=== PATIENT | male | born 1990 | race American Indian/Alaskan Native ===

== ENCOUNTER 2017-02-20 06:19 | Emergency (ER) | payer SELFPAY ==
--- NOTE | 2017-02-20 06:48 | Emergency Department Report ---
HPI - General Chief Complaint: Extremity Problem,Nontraumatic Time Seen by Provider: 02/20/17 06:34 - HPI HPI: This is a 26-year-old -[place] male who presents to the emergency department from home with complaint of right shoulder pain and probable dislocation. The patient has a history of 6 previous right shoulder dislocations but has never seen an orthopedist for evaluation as he does not have any insurance. This will be the first time that the patient dislocated it in his sleep, which is what he believes happened. He is right-hand dominant. He denies any other past medical history. He has not taken anything for symptoms prior presentation. ED Past Medical Hx - Past Medical History Previous Medical History?: No - Surgical History Past Surgical History?: No - Social History Smoking Status: Current Every Day Smoker Substance Use Type: None - Medications Home Medications: Home Medications Medication Instructions Recorded Confirmed Last Taken Type Ibuprofen [Motrin 800 MG tab] 800 mg PO Q8HR PRN #20 tablet 02/20/17 Unknown Rx ED Review of Systems ROS: Stated complaint: DISLOCATED RT SHOULDER Other details as noted in HPI Comment: All other systems reviewed and negative Constitutional: denies: chills, fever Eyes: denies: eye pain, eye discharge, vision change ENT: denies: ear pain, throat pain Respiratory: denies: cough, shortness of breath, wheezing Cardiovascular: denies: chest pain, palpitations Gastrointestinal: denies: abdominal pain, nausea, diarrhea Musculoskeletal: arthralgia. denies: back pain Skin: denies: rash, lesions Neurological: denies: headache, weakness, paresthesias Physical Exam - Physical Exam Vital Signs: Vital Signs 02/20/17 02/20/17 06:21 06:40 Temperature 98.3 F Pulse Rate 78 Respiratory 20 14 Rate Blood Pressure 134/88 O2 Sat by Pulse 96 Oximetry Physical Exam: GENERAL: The patient is well-developed well-nourished. HEENT: Normocephalic. Atraumatic. Extraocular motions are intact. Patient has moist mucous membranes. Pupils equal reactive to light bilaterally. NECK: Supple. Trachea is midline. CHEST/LUNGS: Clear to auscultation. There is no respiratory distress noted. HEART/CARDIOVASCULAR: Regular. There is no tachycardia. There is no gallop rub or murmur. ABDOMEN: Abdomen is soft, nontender. Patient has normal bowel sounds. There is no abdominal distention. SKIN: Skin is warm and dry. NEURO: The patient is awake, alert, and oriented. The patient is cooperative. The patient has no focal neurologic deficits. The patient has normal speech. MUSCULOSKELETAL: There is some tenderness palpation to the circumferential right shoulder which is hanging low below the shoulder joint and held against his body and internal rotation. There is decreased range of motion to the right upper extremity at the shoulder secondary to pain and probable dislocation. Radial pulse +2 over 4 bilaterally. Cap refill less than 2 seconds. ED Course Vital Signs 02/20/17 02/20/17 06:21 06:40 Temperature 98.3 F Pulse Rate 78 Respiratory 20 14 Rate Blood Pressure 134/88 O2 Sat by Pulse 96 Oximetry - Moderate Sedation Indications: fracture/dislocation redu ASA Class: I Mallampati Airway Score: 1 Preparation: court recording monitor applied, pulse oximeter, capnometry used, supplemental O2 applied, suction/airway equipment at bedside, IV secured Ketamine: IV Ketamine Dose: 40 IV Propofol Dose (mgs): 60 Complications: none Patient Tolerated Procedure: well - Orthopedic Joint Reduction Joint #1 Consent Obtained: written consent Time Out Performed: Yes Side: right Joint Reduction Location: shoulder Analgesia: moderate sedation Shoulder Technique Used (if applicable): external rotation Technique Used: traction/counter-traction Post-Reduction Neuro Exam: intact Post-Reduction Vascular Exam: intact Post Reduction X-Ray Obtained: Yes Post Reduction X-Ray Results: reduced Splint Applied: Yes Patient Tolerated Procedure: well ED Medical Decision Making - Radiology Data Radiology results: image reviewed interpreted by me: Preliminary right shoulder x-ray shows a inferior anterior shoulder dislocation. Post reduction x-ray of the right shoulder shows appropriate reduction of the shoulder into the glenohumeral joint. - Medical Decision Making 26 year old male presents with his seventh right shoulder dislocation that occurred while sleeping. X-ray confirms anterior inferior shoulder dislocation. Patient was given moderate sedation and external rotation and traction was used and there was appropriate reduction of the shoulder joint. The reduction was confirmed with a post reduction x-ray of the right shoulder. Patient was monitored and is now awake, alert and does not appear to be under the effects of sedation. Patient was neurovascularly intact prior to the reduction and is neurovascularly intact now prior to discharge. He will be given a referral for an orthopedist and has been placed in a shoulder immobilizer. - Differential Diagnosis shoulder fracture, dislocation, subluxation, rotator cuff injury Critical Care Time: No Critical care attestation.: If time is entered above; I have spent that time in minutes in the direct care of this critically ill patient, excluding procedure time. ED Disposition Clinical Impression: Dislocation of right shoulder joint Qualifiers: Encounter type: initial encounter Qualified Code(s): S43.004A - Unspecified dislocation of right shoulder joint, initial encounter Disposition: DISCHARGED TO HOME OR SELFCARE Is pt being admited?: No Condition: Stable Instructions: Shoulder Dislocation (ED) Additional Instructions: Please follow-up with a orthopedist in the next week. Return to the emergency department with any worsening of your symptoms or any acute distress. Prescriptions: Ibuprofen [Motrin 800 MG tab] 800 mg PO Q8HR PRN #20 tablet PRN Reason: Pain Referrals: PRIMARY CAREMD [Primary Care Provider] - 3-5 Days SUE MARKS MD [Staff Physician] - 3-5 Days [facility] [Outside] - 3-5 Days [facility] [Outside] - 3-5 Days Time of Disposition: 08:56
[2017-02-20] MEDS ORDERED: DIPRIVAN 10 MG/ML IV ONE (06:59)
[2017-02-20] MEDS ORDERED: KETALAR IV ONE (06:59)
[2017-02-20] MEDS ORDERED: NACL 0.9% 1000 ML 1,000 ML ONE (07:59)
[2017-02-20] MEDS ORDERED: NACL 0.9% 1000 ML 1,000 ML IV ONE (08:09)
--- NOTE | 2017-02-20 09:11 | XRay Report ---
Right shoulder single view: History: Shoulder reduction. Next Findings: There is normal alignment noted of the humeral head with glenoid. No fracture. Impression: Satisfactory glenohumeral alignment.
--- NOTE | 2017-02-20 09:12 | XRay Report ---
Right shoulder 3 views: History: Pain. Findings: There is anterior dislocation noted of humeral head. Humeral head is anterior and inferior to the glenoid. No fracture. Impression: Anterior shoulder dislocation.
[2017-02-20 09:23] VITALS: BP 122/82
== END 2017-02-20 09:25 | disposition home or self-care (01) ==
LOC: ED 06:19
DX: S43.004A Unspecified dislocation of right shoulder joint, initial encounter (principal); F17.200 Nicotine dependence, unspecified, uncomplicated; X58.XXXA Exposure to other specified factors, initial encounter; Y93.89 Activity, other specified; Y99.9 Unspecified external cause status; Y92.89 Other specified places as the place of occurrence of the external cause
CPT/HCPCS: 23655; 73020; 73030; 96361; 96374; 96375; 99284; J2704; J7030